=== PATIENT | male | born 1990 | race Asian ===

== ENCOUNTER 2025-03-20 02:58 | Emergency (ER) | payer SELFPAY ==
[~2025-03-20] VITALS: Ht 177.8 cm; Wt 87.0 kg
[2025-03-20 03:03] VITALS: BP 161/111; PULSE 106; RESP 18; TEMP 97.9; O2SAT 100
== END 2025-03-20 03:19 | disposition home or self-care (01) ==
LOC: ER 03:11
DX: F10.129 Alcohol abuse with intoxication, unspecified (principal); I10 Essential (primary) hypertension; Y90.9 Presence of alcohol in blood, level not specified
CPT/HCPCS: 99283